=== PATIENT | male | born 1980 | race Two or more races ===

== ENCOUNTER 2022-07-27 16:43 | Inpatient (IN) | payer OTHER ==
[2022-07-27 17:30] VITALS: BMI 21.4
[2022-07-27] MEDS ORDERED: METHOCARBAMOL 500 MG TABLET PO PRN (18:28)
[2022-07-27] MEDS ORDERED: MAG HYDROX/AL HYDROX/SIMETH 30 ML UNIT-DOSE CUP PO PRN (18:28)
[2022-07-27] MEDS ORDERED: POLYETHYLENE GLYCOL (HEALTHYLAX) 3350 17 GM PACKET PO PRN (18:28)
[2022-07-27] MEDS ORDERED: ACETAMINOPHEN 325 MG TABLET (FP) PO PRN ×2 (18:28)
[2022-07-27] MEDS ORDERED: NALOXONE HCL (KLOXXADO) 8 MG SPRAY NS PRN (18:28)
[2022-07-27] MEDS ORDERED: IBUPROFEN 400 MG TABLET (FP) PO PRN (18:28)
[2022-07-27] MEDS ORDERED: MAGNESIUM HYDROX 2400MG/30ML ORAL SUSPENSION 30 ML CUP PO PRN (18:28)
[2022-07-27] MEDS ORDERED: methaDONE HCL 10 MG TABLET (FOR DETOX USE ONLY) PO ONE ×2 (18:28→20:15)
[2022-07-27] MEDS ORDERED: cloNIDine HCL 0.1 MG TABLET PO PRN (18:28)
[2022-07-27] MEDS ORDERED: BISMUTH SUBSALICYLATE 524 MG/30 ML PO PRN (18:28)
[2022-07-27] MEDS ORDERED: BENZOCAINE/MENTHOL (CHLORASEPTIC ) LOZENGE MM PRN (18:28)
[2022-07-27] MEDS ORDERED: P-EPHED 60MG/TRIPROLIDI 2.5MG TABLET PO PRN (18:28)
[2022-07-27] MEDS ORDERED: LOPERAMIDE HCL 2 MG CAPSULE PO PRN (18:28)
[2022-07-27] MEDS ORDERED: IBUPROFEN 600 MG TABLET (FP) PO PRN (18:28)
[2022-07-27] MEDS ORDERED: NICOTINE POLACRILEX 2 MG GUM BUC PRN (18:28)
[2022-07-27] MEDS: DICYCLOMINE HCL 10 MG CAPSULE PO PRN (20:28)
[2022-07-27] MEDS: THIAMINE HCL 100 MG TABLET (FP) PO SCH (22:41)
[2022-07-27] MEDS: MELATONIN 5 MG TABLETS PO SCH (22:41)
[2022-07-28] MEDS: PRENATAL VITAMINS W/ FOLIC ACID TABLET (FP) PO SCH (10:30)
[2022-07-28 11:48] LABS: HEMATOCRIT 38.3 % (35.4-49); HEMOGLOBIN 12.5 GM/dL (11.7-16.9); MCH 28.3 pg (25.7-33.7); MCHC 32.7 g/dl (32.0-35.9); MEAN CELL VOLUME 86.6 fl (80-96); MEAN PLT VOLUME 9.3 fl (7.5-11.1); PLATELET COUNT 179 10^3/uL (134-434); RBC 4.42 M/mm3 (4.00-5.60); RDW 13.9 % (11.9-15.9)
[2022-07-28 11:58] LABS: CALCIUM 8.9 mg/dL (8.5-10.1)
[2022-07-28 11:59] LABS: ALBUMIN 3.2 g/dl (3.4-5.0); BLOOD UREA NITROGEN 11.8 mg/dL (7-18)
[2022-07-28 12:02] LABS: CREATININE 0.9 mg/dL (0.55-1.3)
[2022-07-28 12:03] LABS: BILIRUBIN,TOTAL 0.7 mg/dL (0.2-1)
[2022-07-28 12:04] LABS: TOT PROT 6.2 g/dl (6.4-8.2)
[2022-07-28] MEDS: MELATONIN 5 MG TABLETS PO SCH (22:09)
[2022-07-28] MEDS: THIAMINE HCL 100 MG TABLET (FP) PO SCH (22:10)
[2022-07-29] MEDS ORDERED: methaDONE HCL 10 MG TABLET (FOR DETOX USE ONLY) PO ONE (10:00)
[2022-07-29] MEDS: PRENATAL VITAMINS W/ FOLIC ACID TABLET (FP) PO SCH (10:12)
[2022-07-29] MEDS: diazePAM 5 MG TABLET PO PRN (10:13)
[2022-07-29] MEDS: NICOTINE 10 MG CARTRIDGE (INHALER) IH PRN (20:01)
[2022-07-29] MEDS: MELATONIN 5 MG TABLETS PO SCH (22:25)
[2022-07-29] MEDS: THIAMINE HCL 100 MG TABLET (FP) PO SCH (22:25)
[2022-07-29] MEDS: DICYCLOMINE HCL 10 MG CAPSULE PO PRN (22:26)
[2022-07-30] MEDS: PRENATAL VITAMINS W/ FOLIC ACID TABLET (FP) PO SCH (10:35)
[2022-07-30] MEDS: NICOTINE 10 MG CARTRIDGE (INHALER) IH PRN (17:21)
[2022-07-30 17:41] VITALS: RESP 18
[2022-07-30] MEDS: THIAMINE HCL 100 MG TABLET (FP) PO SCH (22:04)
[2022-07-30] MEDS: MELATONIN 5 MG TABLETS PO SCH (22:04)
[2022-07-30] MEDS: DICYCLOMINE HCL 10 MG CAPSULE PO PRN (22:05)
[2022-07-31 08:55] VITALS: BP 114/66; PULSE 73; TEMP 98.3
[2022-07-31] MEDS: diazePAM 5 MG TABLET PO PRN (09:18)
[2022-07-31] MEDS ORDERED: methaDONE HCL 10 MG TABLET (FOR DETOX USE ONLY) PO ONE (10:00)
[2022-07-31] MEDS: PRENATAL VITAMINS W/ FOLIC ACID TABLET (FP) PO SCH (10:35)
== END 2022-07-31 10:50 | disposition home or self-care (01) | DRG 773 ==
LOC: YASAS 16:43 → Y3N 19:41
PROVIDERS: ADMIT Surgery; ATTEND Surgery
PROC: HZ2ZZZZ Detoxification Services for Substance Abuse Treatment (ICD-10-PCS; principal; 2022-07-27)
DX: F11.23 Opioid dependence with withdrawal (principal); F14.20 Cocaine dependence, uncomplicated; F12.20 Cannabis dependence, uncomplicated; F17.210 Nicotine dependence, cigarettes, uncomplicated; S00.81XD Abrasion of other part of head, subsequent encounter; W19.XXXD Unspecified fall, subsequent encounter
CPT/HCPCS: 36415; 71046-TC-FY; 80053; 85027; 86780; 93005; 93010; C9803-CS; U0003; U0005

== ENCOUNTER 2022-11-04 15:51 | Inpatient (IN) | payer OTHER ==
[2022-11-04 17:25] VITALS: BMI 19.2
[2022-11-04] MEDS ORDERED: P-EPHED 60MG/TRIPROLIDI 2.5MG TABLET PO PRN (18:49)
[2022-11-04] MEDS ORDERED: ACETAMINOPHEN 325 MG TABLET (FP) PO PRN (18:49)
[2022-11-04] MEDS ORDERED: LOPERAMIDE HCL 2 MG CAPSULE PO PRN (18:49)
[2022-11-04] MEDS ORDERED: MAGNESIUM HYDROX 2400MG/30ML ORAL SUSPENSION 30 ML CUP PO PRN (18:49)
[2022-11-04] MEDS ORDERED: NICOTINE 10 MG CARTRIDGE (INHALER) IH PRN (18:49)
[2022-11-04] MEDS ORDERED: BENZONATATE 200 MG CAPSULE PO PRN (18:49)
[2022-11-04] MEDS ORDERED: NICOTINE POLACRILEX 2 MG GUM BUC PRN (18:49)
[2022-11-04] MEDS ORDERED: guaiFENesin 600 MG TABLET.ER (FP) PO PRN (18:49)
[2022-11-04] MEDS ORDERED: DICYCLOMINE HCL 10 MG CAPSULE PO PRN (18:49)
[2022-11-04] MEDS ORDERED: NALOXONE HCL 0.4 MG/ML VIAL IM PRN (18:49)
[2022-11-04] MEDS ORDERED: NALOXONE HCL (KLOXXADO) 8 MG SPRAY NS PRN (18:49)
[2022-11-04] MEDS ORDERED: POLYETHYLENE GLYCOL (HEALTHYLAX) 3350 17 GM PACKET PO PRN (18:49)
[2022-11-04] MEDS ORDERED: ONDANSETRON *ODT* 4 MG TABLET SL PRN (18:49)
[2022-11-04] MEDS ORDERED: BENZOCAINE/MENTHOL (CHLORASEPTIC ) LOZENGE MM PRN (18:49)
[2022-11-04] MEDS ORDERED: IBUPROFEN 400 MG TABLET (FP) PO PRN (18:49)
[2022-11-04] MEDS ORDERED: MAG HYDROX/AL HYDROX/SIMETH 30 ML UNIT-DOSE CUP PO PRN (18:49)
[2022-11-04] MEDS ORDERED: BISMUTH SUBSALICYLATE 524 MG/30 ML PO PRN (18:49)
[2022-11-04] MEDS: THIAMINE HCL 100 MG TABLET (FP) PO SCH (21:52)
[2022-11-04] MEDS: MELATONIN 5 MG TABLETS PO PRN (21:53)
[2022-11-04] MEDS: BACITRACIN 0.9 GM PACKET TP SCH (21:53)
[2022-11-05] MEDS ORDERED: cloNIDine HCL 0.1 MG TABLET PO PRN (09:25)
[2022-11-05] MEDS ORDERED: methaDONE HCL 10 MG TABLET (FOR DETOX USE ONLY) PO ONE ×2 (10:00→17:30)
[2022-11-05] MEDS: BACITRACIN 0.9 GM PACKET TP SCH ×2 (11:00→21:59)
[2022-11-05] MEDS: PRENATAL VITAMINS W/ FOLIC ACID TABLET (FP) PO SCH (11:01)
[2022-11-05 11:45] LABS: HEMATOCRIT 34.4 % (35.4-49); HEMOGLOBIN 11.7 GM/dL (11.7-16.9); MEAN CELL VOLUME 85.3 fl (80-96); MEAN PLT VOLUME 10.2 fl (7.5-11.1); PLATELET COUNT 210 10^3/uL (134-434); RBC 4.03 M/mm3 (4.00-5.60); RDW 14.4 % (11.9-15.9); WHITE BLOOD COUNT 5.3 K/mm3 (4.0-10.0)
[2022-11-05 11:47] LABS: CALCIUM 8.3 mg/dL (8.5-10.1)
[2022-11-05 11:48] LABS: ALBUMIN 2.9 g/dl (3.4-5.0); BLOOD UREA NITROGEN 24.5 mg/dL (7-18)
[2022-11-05 11:51] LABS: CREATININE 0.8 mg/dL (0.55-1.3)
[2022-11-05 11:53] LABS: TOT PROT 5.5 g/dl (6.4-8.2)
[2022-11-05] MEDS: THIAMINE HCL 100 MG TABLET (FP) PO SCH (21:59)
[2022-11-05] MEDS: MELATONIN 5 MG TABLETS PO PRN (21:59)
[2022-11-06] MEDS: PRENATAL VITAMINS W/ FOLIC ACID TABLET (FP) PO SCH (10:03)
[2022-11-06] MEDS: BACITRACIN 0.9 GM PACKET TP SCH ×2 (10:03→22:07)
[2022-11-06] MEDS: hydrOXYzine PAMOATE 25 MG CAPSULE (FP) PO PRN ×2 (10:04→22:06)
[2022-11-06 20:46] VITALS: RESP 16
[2022-11-06] MEDS: THIAMINE HCL 100 MG TABLET (FP) PO SCH (22:06)
[2022-11-06] MEDS: METHOCARBAMOL 500 MG TABLET PO PRN (22:06)
[2022-11-06] MEDS: MELATONIN 5 MG TABLETS PO PRN (22:06)
[2022-11-07] MEDS: METHOCARBAMOL 500 MG TABLET PO PRN (07:06)
[2022-11-07] MEDS: hydrOXYzine PAMOATE 25 MG CAPSULE (FP) PO PRN (07:06)
[2022-11-07] MEDS ORDERED: methaDONE HCL 10 MG TABLET (FOR DETOX USE ONLY) PO ONE ×2 (10:00→12:30)
[2022-11-07] MEDS: BACITRACIN 0.9 GM PACKET TP SCH (11:10)
[2022-11-07] MEDS: PRENATAL VITAMINS W/ FOLIC ACID TABLET (FP) PO SCH (11:11)
[2022-11-07 13:38] VITALS: BP 121/64; PULSE 92; TEMP 99
[2022-11-09] MEDS ORDERED: methaDONE HCL 10 MG TABLET (FOR DETOX USE ONLY) PO ONE (10:00)
== END 2022-11-07 13:10 | disposition left against medical advice (07) | DRG 770 ==
LOC: YASAS 15:51 → Y6N 20:01
PROVIDERS: ADMIT Allergy & Immunology; ATTEND Allergy & Immunology
PROC: HZ2ZZZZ Detoxification Services for Substance Abuse Treatment (ICD-10-PCS; principal; 2022-11-04)
DX: F11.23 Opioid dependence with withdrawal (principal); F14.20 Cocaine dependence, uncomplicated; F12.10 Cannabis abuse, uncomplicated; F17.210 Nicotine dependence, cigarettes, uncomplicated; F19.282 Other psychoactive substance dependence with psychoactive substance-induced sleep disorder; R79.89 Other specified abnormal findings of blood chemistry; R63.4 Abnormal weight loss; Z68.41 Body mass index [BMI] 40.0-44.9, adult; Z59.00 Homelessness unspecified
CPT/HCPCS: 36415; 80053; 85027; 86780; C9803-CS; U0003; U0005